=== PATIENT | male | born 1980 | race Caucasian/White ===

== ENCOUNTER → 2023-03-18 | Outpatient (CLI) | payer BC ==
[2023-03-18 09:20] VITALS: BP 150/95
== END | disposition home or self-care (01) ==
LOC: XYW 09:09
PROVIDERS: ATTEND Internal Medicine
DX: R07.2 Precordial pain (principal); R00.2 Palpitations; F41.0 Panic disorder [episodic paroxysmal anxiety]; Z56.6 Other physical and mental strain related to work; Z68.34 Body mass index [BMI] 34.0-34.9, adult
CPT/HCPCS: 93017